=== PATIENT | male | born 1985 | race Asian ===

== ENCOUNTER 2016-11-07 15:56 | Emergency (ER) | payer OTHER ==
[~2016-11-07] VITALS: Ht 195.6 cm; Wt 140.6 kg
[2016-11-07] MEDS ORDERED: GLIP10TA55 PO (16:08)
[2016-11-07] MEDS ORDERED: FORTAMET1000 MG PO (16:08)
[2016-11-07] MEDS ORDERED: LISI5TAB10 PO (16:08)
[2016-11-07 16:43] LABS: PLATELET COUNT 360 K/uL (142-355)
[2016-11-07 18:38] LABS: POTASSIUM 5.9 mmol/L (3.6-5.2)
[2016-11-07 21:07] VITALS: BP 136/61; TEMP 98.6
[2016-11-08 02:18] LABS: SODIUM 116 mmol/L (136-145)
== END 2016-11-07 21:12 | disposition home or self-care (01) ==
LOC: ED 15:56
DX: E10.65 Type 1 diabetes mellitus with hyperglycemia (principal); K04.7 Periapical abscess without sinus; E78.5 Hyperlipidemia, unspecified
CPT/HCPCS: 36415; 80053; 80061; 81000; 83036; 85027; 96374; 99284; J1815